=== PATIENT | male | born 1995 | race African-American/Black ===

== ENCOUNTER 2017-08-30 07:27 | Emergency (ER) | payer BC, OTHER | END 2017-08-30 08:18 | disposition home or self-care (01) | LOC: NAV ERS 07:27 | DX: J06.9 Acute upper respiratory infection, unspecified (principal); F17.210 Nicotine dependence, cigarettes, uncomplicated | CPT/HCPCS: 99283 ==

== ENCOUNTER 2019-10-24 08:42 | Emergency (ER) | payer OTHER ==
[2019-10-24] MEDS ORDERED: Acetaminophen 500 MG TAB ONE (09:28)
== END 2019-10-24 09:55 | disposition home or self-care (01) ==
LOC: NAV ERS 08:42
DX: J06.9 Acute upper respiratory infection, unspecified (principal); F17.210 Nicotine dependence, cigarettes, uncomplicated
CPT/HCPCS: 87081; 87430; 87804; 99283

== ENCOUNTER 2021-07-20 09:54 | Emergency (ER) | payer OTHER, SELFPAY | END 2021-07-20 11:10 | disposition home or self-care (01) | LOC: NAV ERS 09:54 | DX: R50.9 Fever, unspecified (principal); Z20.822 Contact with and (suspected) exposure to COVID-19; F17.210 Nicotine dependence, cigarettes, uncomplicated | CPT/HCPCS: 99283 ==

== ENCOUNTER 2021-08-12 14:02 | Emergency (ER) | payer SELFPAY ==
[2021-08-12] MEDS ORDERED: cefTRIAXone\\ROCEPHIN 500 MG VIAL ONE (15:25)
[2021-08-12] MEDS ORDERED: Doxycycline 100 MG CAP ONE (15:25)
[2021-08-12] MEDS ORDERED: Lidocaine 1% (PF) 30 ML VIAL ONE (15:30)
[2021-08-12 15:31] LABS: Bilirubin Negative (Negative); Blood, Urine Trace (Negative); Glucose, Urine (Dipstick) Negative (Negative); Ketone, Urine Negative (Negative); Leukocyte Small (Negative); Nitrite Negative (Negative); Protein, Urine (Dipstick) 100 mg/dL (Neg-Trace); Urobilinogen 0.2 mg/dL (Less than 2)
[2021-08-12 15:32] LABS: Clarity Hazy (Clear)
[2021-08-12 15:39] LABS: Specific Gravity, Urine 1.029 (1.002-1.036)
[2021-08-12 15:40] LABS: RBC/HPF 0-3 HPF (0-3); Squamous Epithelial 0-3 HPF (0-3); WBC/HPF Greater Than 50 HPF (0-3)
[2021-08-14 20:35] LABS: Chlam.trachomatis by PCR,Urine DETECTED (NotDetected)
== END 2021-08-12 15:55 | disposition home or self-care (01) ==
LOC: NAV ERS 14:02
DX: N34.1 Nonspecific urethritis (principal); F17.210 Nicotine dependence, cigarettes, uncomplicated
CPT/HCPCS: 81003; 81015; 87086; 87491; 87591; 96372; 99283; J0696; J2001

== ENCOUNTER 2023-04-03 08:22 | Emergency (ER) | payer SELFPAY ==
[2023-04-03 09:41] LABS: #Basophils 0.2 thou/uL (0.0-0.2); #Eosinphils 0.2 thou/uL (0.0-0.7); #Lymphocytes 1.9 thou/uL (1.20-3.40); #Monocytes 0.8 thou/uL (0.11-0.59); #Neutrophils 5.8 thou/uL (1.40-6.50); %Basophils 1.8 % (0.0-1.0); %Eosinophils 1.9 % (0.0-10.0); %Lymphocytes 21.9 % (21.0-51.0); %Monocytes 9.2 % (0.0-10.0); %Neutrophils 65.3 % (42.0-75.0); Hemoglobin 15.1 g/dL (14.0-18.0); Mean Corpuscular HGB CONC 30.9 g/dL (32.0-36.0); Mean Corpuscular Hemoglobin 27.2 pg (27.0-31.0); Mean Corpuscular Volume 87.9 fl (78.0-98.0); Mean Platelet Volume 6.4 fL (7.4-10.4); Platelet Count 193 10x3/uL (130-400); RBC Distribution Width 12.7 % (11.5-14.5); Red Blood Cell (RBC) Count 5.57 mill/uL (4.70-6.10); White Blood Cell (WBC) Count 8.8 10x3/uL (4.8-10.8)
[2023-04-03 09:49] LABS: ALT (SGPT) 33 U/L (8-55); AST (SGOT) 42 U/L (5-34); Albumin 4.4 g/dL (3.5-5.0); Alkaline Phosphatase 84 U/L (40-110); Anion Gap 14 mmol/L (10-20); BUN (Urea Nitrogen) 16 mg/dL (8.9-20.6); Bilirubin, Total 1.2 mg/dL (0.2-1.2); Calc. Creatinine Clearance 0 mL/min (70-130); Calcium 9.4 mg/dL (7.8-10.44); Carbon Dioxide 24 mmol/L (22-29); Chloride 104 mmol/L (98-107); Estimated GFR 90; Globulin 3.7 g/dL (2.4-3.5); Glucose 86 mg/dL (70-105); Lipase 85 U/L (8-78); Potassium 4.6 mmol/L (3.5-5.1); Protein, Total 8.1 g/dL (6.0-8.3); Sodium 137 mmol/L (136-145)
[2023-04-03] MEDS ORDERED: Ibuprofen 200 MG TAB ONE (10:29)
== END 2023-04-03 11:33 | disposition home or self-care (01) ==
LOC: NAV ERS 08:22
DX: R07.89 Other chest pain (principal); R74.8 Abnormal levels of other serum enzymes; F17.290 Nicotine dependence, other tobacco product, uncomplicated
CPT/HCPCS: 71046; 80053; 83690; 85025; 85379

== ENCOUNTER 2025-07-31 02:19 | Emergency (ER) | payer SELFPAY ==
[2025-07-31] MEDS ORDERED: Boostrix 0.5 ML (Tdap) VIAL (>/=7 yrs of age) ONE (02:30)
[2025-07-31] MEDS ORDERED: Lidocaine 1% (PF) 30 ML VIAL ONE (02:30)
== END 2025-07-31 03:24 | disposition home or self-care (01) ==
LOC: NAV ERS 02:19
DX: S61.212A Laceration without foreign body of right middle finger without damage to nail, initial encounter (principal); S61.214A Laceration without foreign body of right ring finger without damage to nail, initial encounter; F17.290 Nicotine dependence, other tobacco product, uncomplicated; Z75.3 Unavailability and inaccessibility of health-care facilities; Z23 Encounter for immunization; W25.XXXA Contact with sharp glass, initial encounter
CPT/HCPCS: 12002; 90471; 90715

== ENCOUNTER 2025-08-12 14:02 | Emergency (ER) | payer SELFPAY | END 2025-08-12 14:30 | disposition home or self-care (01) | LOC: NAV ERS 14:02 | DX: S61.411D Laceration without foreign body of right hand, subsequent encounter (principal); F17.210 Nicotine dependence, cigarettes, uncomplicated; F17.290 Nicotine dependence, other tobacco product, uncomplicated ==